=== PATIENT | male | born 1985 | race Caucasian/White ===

== ENCOUNTER 2025-05-09 11:03 | Emergency (ER) | payer OTHER, MEDICAID, SELFPAY ==
[2025-05-09 11:18] VITALS: BP 118/77; PULSE 79; TEMP 36.9; O2SAT 96; BMI 23.3
--- NOTE | 2025-05-09 11:35 | W.ED.PSYCHS ---
HPI - Psych General: Chief Complaint: Psychiatric Symptoms Stated Complaint: MHE Time Seen by Provider: 05/09/25 11:35 History of Present Illness: 40 male with history of Asperger's syndrome who presents to the ED accompanied by his sister. The patient was previously living with his father in [place], [place], but was asked to leave after reportedly taking food from the house without permission. The patient is currently staying with his sister who states she is unable to provide the level of care she believes he needs. The sister reports that she was advised by a associate director of nursing that obtaining a psychiatric evaluation would be the first step toward finding appropriate placement for the patient. The patient receives disability income but reports difficulty managing finances and bills independently. The sister states the patient has 'the mental capacity of a 12-year-old' and has been diagnosed with Asperger's syndrome. The patient appears able to perform basic activities of daily living including cooking and cleaning for himself. No acute psychiatric symptoms are reported or observed during the encounter. The patient denies suicidal or homicidal ideation. Related Data Allergies Allergy/AdvReac Type Severity Reaction Status Date / Time No Known Allergies Allergy Verified 05/09/25 11:23 Physical Exam Const: COMMON NORMALS: no acute distress, patient oriented x3 and alert GENERAL APPEARANCE: cooperative ORIENTATION/CONSCIOUSNESS: Yes awake, Yes oriented to person, Yes oriented to place and Yes oriented to time HENMT: COMMON NORMALS: normocephalic, atraumatic, external ears normal, Normal external nose present and moist oral mucous membranes HEAD & SCALP: normal to inspection, normocephalic and atraumatic NOSE: Normal external nose present GENERAL EAR: hearing grossly impaired EXTERNAL EAR: Yes external ears normal Eye: COMMON NORMALS: Equal, round and reactive pupils present, EOMs intact bilaterally, conjunctivae normal and no scleral icterus GENERAL EYE: appearance normal, both eyes and all related structures EYELID: eyelids normal CONJUNCTIVA: Yes conjunctivae normal SCLERA: sclerae normal PUPIL: Yes Equal, round and reactive pupils present Neck/C-Spine: COMMON NORMALS: full ROM, supple and no JVD GENERAL: Yes normal visual inspection Lymph: LYMPHATIC: no lymphadenopathy noted and no lymphedema noted Chest: COMMONS NORMALS: normal inspection of the chest Resp: COMMON NORMALS: normal respiratory effort, No retractions and No use of accessory muscles Cardio: COMMON NORMALS: no JVD, regular rate and regular rhythm RATE: regular rate RHYTHM: regular rhythm GI: COMMON NORMALS: Normal to inspection, nondistended, normoactive bowel sounds present : COMMON NORMALS: Yes no CVA tenderness BLADDER/KIDNEY EXAM: Yes no CVA tenderness Back/Pelvis: COMMON NORMALS: no CVA tenderness and thoracic and lumbar spine normal to inspection Extremity: COMMON NORMALS: normal to inspection, full ROM and capillary refill normal GENERAL: Yes normal exam except as noted Neuro: COMMON NORMALS: patient oriented x3, CN's II-XII intact bilaterally, moves all extremities, no focal motor deficits, no sensory deficits noted and gait normal SENSORIUM/ORIENTATION: Yes alert, Yes oriented to person, Yes oriented to place and Yes oriented to time Psych: COMMON NORMALS: mental status grossly normal, Normal thought process present, cooperative and normal affect THOUGHT PROCESS: Normal thought process present Skin: COMMON NORMALS: no rashes or lesions noted and no wounds GENERAL SKIN EXAM: no rashes or lesions noted Course Vital Signs: Vital signs: Vital Signs Temperature 98.5 F 05/09/25 11:18 Pulse Rate 79 05/09/25 11:18 Respiratory Rate 18 05/09/25 11:38 Blood Pressure 118/77 05/09/25 11:18 Pulse Oximetry 98 05/09/25 11:38 Oxygen Delivery Me thod Room Air 05/09/25 11:38 MDM - Psych Medical Decision Making Summary Statement:40 male with history of Asperger's syndrome presenting with housing insecurity, accompanied by sister seeking psychiatric evaluation for placement assistance. Problem List: 1. Asperger's syndrome/Autism Spectrum Disorder, 2. Housing insecurity, 3. Difficulty with independent living skills. Differential Diagnosis: 1. Autism Spectrum Disorder with need for supportive housing, 2. Intellectual disability requiring supervised living environment, 3. Psychiatric condition requiring higher level of care (not evident during this encounter). ED Course: Patient evaluated for acute psychiatric concerns. No evidence of acute psychiatric emergency requiring inpatient admission. Social work consultation obtained to assist with housing resources and community support services. No radiology studies performed this visit Discharge Plan Discharge Patient Disposition: Home Clinical Impression: Encounter for medical screening examination Condition: Stable Discharge Orders: Discharge ED (Routine); Ordered 05/09/25 Ordered By: Quang Espinosa Referrals: Yany Vera [facility] Office for [facility] [Other] Referral Note: Please reach out to [facility] to obtain [facility] coordinator's information for assistance with placement. [facility] [Other] Referral Note: Please go by [facility] and they can provide you with a brochure to assist you with contacting [facility] and through the process of placement. Discharge Diet: Advance as tolerated Discharge Activity: Resume usual activity Patient Instructions: Patient Portal & Ke[facility] Instructions Print Language: Dominican Coding Level of Care Code ED Tip Stitcher for Derrell Pina
[2025-05-09 11:38] VITALS: RESP 18; O2SAT 98
== END 2025-05-09 12:30 | disposition home or self-care (01) ==
PROVIDERS: Emergency Provider Emergency Medicine
DX: Z00.00 Encounter for general adult medical examination without abnormal findings (principal)
CPT/HCPCS: 99283

== ENCOUNTER → 2025-05-23 09:40 | Outpatient (BNVA) | payer OTHER, MEDICAID, SELFPAY | PROVIDERS: Visit Provider Nurse Practitioner | DX: E78.5 Hyperlipidemia, unspecified (principal); F84.5 Asperger's syndrome | CPT/HCPCS: 80053; 80061; 84443; 85025 ==

== ENCOUNTER → 2025-08-26 12:11 | Outpatient (BNVA) | payer OTHER, SELFPAY | PROVIDERS: PCP Nurse Practitioner; Visit Provider Psychiatry & Neurology Psychiatry | DX: F32.9 Major depressive disorder, single episode, unspecified (principal); F84.5 Asperger's syndrome; F81.9 Developmental disorder of scholastic skills, unspecified; Z79.899 Other long term (current) drug therapy | CPT/HCPCS: 83036 ==